=== PATIENT | female | born 1930 | race Caucasian/White ===

== ENCOUNTER 2017-02-26 10:19 | Inpatient (IN) ==
[2017-02-26 11:16] LABS: Basophils % 0.7 % (0.0-0.8); Hematocrit 38.8 VOL% (35.7-47.0); Hemoglobin 12.8 GM/DL (12.0-16.0); Immature Granulocytes % 0.3 %; Immature Granulocytes Absolute 0.02 #; Lymphocytes # 1.1 10*3/uL (1.4-4.0); Mean Corpuscular Hemoglobin 32 PG (27-34); Mean Corpuscular Volume 97.5 FL (87-102); Mean Platelet Volume 9.2 FL (9.6-12.0); Monocytes # 0.5 10*3/uL (0.11-0.8); Monocytes % 8.9 % (1.7-12.7); Neutrophils # 4.3 10*3/uL (1.4-7.4); Neutrophils % 72.1 % (38.7-73.9); Platelet Count 192 T/CUMM (130-400); Red Blood Count 3.98 MC/CUMM (3.8-5.5); Red Cell Distribution Width 12.9 % (9.3-17.3); White Blood Count 5.9 T/CUMM (4-12)
[2017-02-26 11:32] LABS: INR 0.9
[2017-02-26 11:45] LABS: Albumin 3.3 G/DL (3.4-5.0); Bilirubin,Total 0.4 MG/DL (0.2-1.0); Calcium 9.8 MG/DL (8.5-10.1); Osmolality,Calculated 276.7 MOS/KG (273-304); Potassium 4.3 MMOL/L (3.5-5.1); Total Protein 6.6 G/DL (6.4-8.3)
[2017-02-26] MEDS ORDERED: ONDANSETRON 4 MG/2 ML VIAL IV PRN (14:06)
[2017-02-26] MEDS ORDERED: APIXABAN 5 MG TABLET PO STA ×2 (14:06→15:03)
[2017-02-26 14:52] LABS: Magnesium 2.1 MG/DL (1.8-2.4); Thyroid Stimulating Hormone 3.84 uIU/ml (0.358-3.74)
[2017-02-26] MEDS: PANTOPRAZOLE 40 MG TABLET PO SCH (15:24)
[2017-02-26] MEDS ORDERED: MOMETASONE 50 MCG NASAL SPRAY 17 GM BOTTLE BOTH NARES PRN (15:43)
[2017-02-26] MEDS ORDERED: FUROSEMIDE 40 MG TABLET PO ONE (15:46)
[2017-02-26] MEDS ORDERED: POTASSIUM CHLORIDE 20 MEQ TABLET PO ONE (15:47)
[2017-02-26] MEDS ORDERED: APIXABAN 5 MG TABLET PO ONE (21:00)
[2017-02-26] MEDS ORDERED: DOXEPIN 25 MG CAPSULE PO SCH (21:00)
[2017-02-26] MEDS ORDERED: MIRTAZAPINE 30 MG TABLET PO SCH (21:00)
[2017-02-26] MEDS ORDERED: clonazePAM 0.5 MG TABLET PO SCH (21:00)
[2017-02-26] MEDS: GABAPENTIN 100 MG CAPSULE PO SCH (21:41)
[2017-02-26] MEDS: APIXABAN 5 MG TABLET PO SCH (21:42)
[2017-02-27 03:32] LABS: Basophils # 0.1 10*3/uL (0.0-0.2); Basophils % 0.8 % (0.0-0.8); Eosinophils % 0.2 % (0.00-10.9); Hematocrit 35.5 VOL% (35.7-47.0); Hemoglobin 11.9 GM/DL (12.0-16.0); Immature Granulocytes % 0.5 %; Immature Granulocytes Absolute 0.03 #; Lymphocytes # 1.3 10*3/uL (1.4-4.0); Lymphocytes % 19.6 % (21.3-54.2); Mean Corpuscular HGB Conc 33.5 GM/DL (32-36); Mean Corpuscular Hemoglobin 32 PG (27-34); Mean Corpuscular Volume 96.2 FL (87-102); Mean Platelet Volume 9.6 FL (9.6-12.0); Monocytes # 0.6 10*3/uL (0.11-0.8); Monocytes % 9.1 % (1.7-12.7); Neutrophils # 4.5 10*3/uL (1.4-7.4); Neutrophils % 69.8 % (38.7-73.9); Platelet Count 212 T/CUMM (130-400); Red Blood Count 3.69 MC/CUMM (3.8-5.5); Red Cell Distribution Width 12.9 % (9.3-17.3); White Blood Count 6.5 T/CUMM (4-12)
[2017-02-27 04:24] LABS: Calcium 9.5 MG/DL (8.5-10.1); Osmolality,Calculated 279.5 MOS/KG (273-304); Risk Ratio 2.72
[2017-02-27] MEDS ORDERED: LEVOTHYROXINE 25 MCG TABLET PO SCH (07:00)
[2017-02-27] MEDS ORDERED: MONTELUKAST 10 MG TABLET PO SCH (09:00)
[2017-02-27] MEDS ORDERED: LACTOBACILLUS RHAMNOSUS GG CAPSULE PO SCH (09:00)
[2017-02-27] MEDS ORDERED: CHOLECALCIFEROL 5,000 UNIT TABLET PO SCH (09:00)
[2017-02-27] MEDS ORDERED: Mirabegron [Myrbetriq] 25 MG PO SCH (09:00)
[2017-02-27] MEDS ORDERED: clonazePAM 0.5 MG TABLET PO SCH (09:00)
[2017-02-27] MEDS ORDERED: CETIRIZINE 10 MG TABLET PO SCH (09:00)
[2017-02-27] MEDS: APIXABAN 5 MG TABLET PO SCH (09:52)
[2017-02-27] MEDS: PANTOPRAZOLE 40 MG TABLET PO SCH (09:53)
[2017-02-27] MEDS: GABAPENTIN 100 MG CAPSULE PO SCH (10:37)
[2017-02-27 12:25] VITALS: BP 106/52
== END 2017-02-27 12:36 | disposition home or self-care (01) | DRG 300 ==
LOC: N.ED 10:19 → N.EDINP 12:15 → N.TELES 14:46 → N.2E 17:36
PROVIDERS: ADMIT Internal Medicine; ATTEND Internal Medicine

== ENCOUNTER 2017-09-16 10:05 | Inpatient (IN) ==
[2017-09-24 07:59] VITALS: BP 126/60
== END 2017-09-24 10:30 | disposition home health service (06) | DRG 392 ==
LOC: N.2W 09-21 11:00 → N.TELEN 09-21 12:36
PROVIDERS: ADMIT Internal Medicine Interventional Cardiology; ATTEND Internal Medicine Interventional Cardiology